=== PATIENT | female | born 1975 | race Caucasian/White ===

== ENCOUNTER 2019-10-30 17:51 | Emergency (ER) | payer MEDICAID ==
[~2019-10-30] VITALS: Ht 177.8 cm; Wt 90.0 kg
[2019-10-30] MEDS ORDERED: CEPH500C5 PO (20:17)
[2019-10-30] MEDS ORDERED: PRED20TA PO (20:17)
[2019-10-30] MEDS ORDERED: PERM60CR19 TP (20:17)
[2019-10-30] MEDS ORDERED: SULF1TAB49 PO (20:17)
[2019-10-30 20:37] VITALS: BP 140/78
== END 2019-10-30 20:34 | disposition home or self-care (01) ==
LOC: ER 17:52
DX: L02.414 Cutaneous abscess of left upper limb (principal); L02.413 Cutaneous abscess of right upper limb; L02.416 Cutaneous abscess of left lower limb; L02.415 Cutaneous abscess of right lower limb; R21 Rash and other nonspecific skin eruption; J44.9 Chronic obstructive pulmonary disease, unspecified; F15.90 Other stimulant use, unspecified, uncomplicated; Z59.0 Homelessness
CPT/HCPCS: 99283

== ENCOUNTER 2020-07-09 14:55 | Emergency (ER) | payer MEDICAID ==
[~2020-07-09] VITALS: Ht 177.8 cm; Wt 75.9 kg
[~2020-07-09 14:55] MED LIST: CEPH500C5 PO
[2020-07-09 15:21] VITALS: BP 149/92
[2020-07-09] MEDS ORDERED: CefTRIAXone 250MG inj IM ONE (16:30)
[2020-07-09] MEDS ORDERED: sulfamethoxazole/trimethoprim DS (800/160mg) tablet PO ONE (16:30)
[2020-07-09] MEDS ORDERED: CefTRIAXone 250MG IM Kit w/LIDOcaine IM ONE (16:40)
[2020-07-09] MEDS ORDERED: SULF1TAB49 PO (16:41)
[2020-07-09] MEDS ORDERED: CEPH500C5 PO (16:41)
== END 2020-07-09 16:56 | disposition home or self-care (01) ==
LOC: ER 14:55
DX: L03.011 Cellulitis of right finger (principal); J44.9 Chronic obstructive pulmonary disease, unspecified; F15.90 Other stimulant use, unspecified, uncomplicated; Z59.0 Homelessness; Z88.8 Allergy status to other drugs, medicaments and biological substances; Z79.2 Long term (current) use of antibiotics; Z79.899 Other long term (current) drug therapy
CPT/HCPCS: 96372; 99283; J0696

== ENCOUNTER 2020-07-17 15:25 | Inpatient (IN) | payer MEDICAID ==
[~2020-07-17] VITALS: Ht 177.8 cm; Wt 79.6 kg
[~2020-07-17 15:25] MED LIST changes: +CEPH-585 PO; -CEPH500C5 PO; +SULF1TAB49 PO
[2020-07-17 16:49] LABS: BASOPHILS # (AUTO) 0.1 X10'3 (0-0.2); EOSINOPHILS # (AUTO) 0.2 X10'3 (0-0.9); HEMOGLOBIN 13.6 g/dl (12.0-16.0); MEAN CORPUSCULAR HEMOGLOBIN 29.2 PG (27.0-31.0); MONOCYTES # (AUTO) 0.5 X10'3 (0-0.9); RED BLOOD COUNT 4.67 X10'6 (4.20-5.60)
[2020-07-17 16:51] LABS: BASOPHILS % (AUTO) 0.8 % (0-1); EOSINOPHILS % (AUTO) 1.3 % (0-6); HEMATOCRIT 40.6 % (35.0-45.0); LYMPHOCYTES % (AUTO) 17.3 % (21-51); MEAN CORPUSCULAR HGB CONC 33.5 g/dL (33.0-36.5); MEAN PLATELET VOLUME 7.6 FL (7.4-10.4); MONOCYTES % (AUTO) 4.1 % (2-12); NEUTROPHILS # (AUTO) 8.7 X10'3 (1.8-7.7); NEUTROPHILS % (AUTO) 76.5 % (42-75); PLATELET COUNT 620 X10'3 (140-440); RED CELL DISTRIBUTION WIDTH 13.1 % (11.5-14.5); WHITE BLOOD COUNT 11.3 X10'3 (4.5-11.0)
[2020-07-17 17:06] LABS: ALANINE AMINOTRANSFERASE 16 U/L (12-78); ALBUMIN 3.2 G/DL (3.4-5.0); ALBUMIN/GLOBULIN RATIO 0.7 (1.1-1.5); ALKALINE PHOSPHATASE 89 IU/L (46-116); ANION GAP 12 (8-16); ASPARTATE AMINO TRANSFERASE 18 U/L (10-37); BILIRUBIN,TOTAL 0.3 MG/DL (0.1-1.0); BLOOD UREA NITROGEN 16 MG/DL (7-18); BUN/CREATININE RATIO 18.6 (6.6-38.0); CALCIUM 9.2 MG/DL (8.5-10.1); CHLORIDE 100 MMOL/L (99-107); CREATININE 0.86 MG/DL (0.40-0.90); GLUCOSE 88 MG/DL (70-104); SODIUM 139 MMOL/L (135-145); TOTAL CARBON DIOXIDE 27.4 MMOL/L (24-32); TOTAL PROTEIN 7.6 G/DL (6.4-8.2); eGFR 72 ML/MIN
[2020-07-17 17:07] LABS: POTASSIUM 4.3 MMOL/L (3.5-5.1)
[2020-07-17] MEDS ORDERED: CefTRIAXone/D5W-Rocephin 1gm 50 ML IV ONE (17:10)
[2020-07-17] MEDS ORDERED: morphine 4 MG/ML inj SYRINge IV ONE (17:10)
[2020-07-17] MEDS ORDERED: ondansetron/PF 4mg/2ml inj IV ONE (17:10)
[2020-07-17] MEDS ORDERED: vancomycin/NS 1 GM ADD-VANTAGE 250 ML X 1 DOSE IV ONE (17:15)
[2020-07-17 17:27] LABS: C-REACTIVE PROTEIN 2.36 MG/DL (0.0-0.5)
[2020-07-17] MEDS ORDERED: magnesium Cl slow-release 64mg tablet PO PRN (19:55)
[2020-07-17] MEDS ORDERED: morphine 2 MG/ML inj. syringe IV PRN ×2 (19:55)
[2020-07-17] MEDS ORDERED: acetaminophen 325mg tablet PO PRN ×2 (19:55)
[2020-07-17] MEDS ORDERED: HYDROcodone/acetaminophen 5mg/325mg tablet PO PRN (19:55)
[2020-07-17] MEDS ORDERED: magnesium 2GM in 50ml NS 50 ML IV PRN (19:55)
[2020-07-17] MEDS ORDERED: potassium Cl 40MEQ/1/2NS 520ml 520 ML IV PRN ×2 (19:55)
[2020-07-17] MEDS ORDERED: potassium Cl 20 mEq SR tablet PO PRN ×2 (19:55)
[2020-07-17] MEDS ORDERED: ondansetron/PF 4mg/2ml inj IV PRN (19:55)
[2020-07-17] MEDS ORDERED: magnesium 4gm in 100ml NS 100 ML IV PRN (19:55)
[2020-07-17 20:33] LABS: HEMOGLOBIN A1C 5.6 % (4.5-6.2)
[2020-07-17] MEDS ORDERED: temazepam 15mg capsule PO PRN (21:00)
[2020-07-17 22:00] VITALS: BP 147/96
--- NOTE | 2020-07-17 22:20 | NUR ---
PT CAME TO ROOM 4011B FROM ER. FOUND SOME PIPES AND SYRINGES IN PT'S BAG. CALLED SECURITY TO SEARCH ALL HER BELONGINGS. FOUND MORE PIPES AND MARIJUANA WHICH SECURITY TOOK TO DISPOSE. AND FOUND SOME MEDICATIONS, 4 LIGHTERS, INSTRUCTOR APPAREL MANUFACTURE FLUID, MACE, TABACCO LEAVES. SENT MEDS TO PHARMACY AND KEPT OTHERS IN MED ROOM. PT IS VERY UPSET.
[2020-07-17] MEDS: heparin, porcine 5000 units/ml vial SQ SCH (22:55)
[2020-07-17] MEDS: docusate sod 100mg capsule PO SCH (22:58)
[2020-07-17] MEDS: HYDROcodone/acetaminophen 10/325mg tab PO PRN (23:01)
[2020-07-17] MEDS: normal saline 1000ml 1,000 ML IV SCH (23:02)
[2020-07-17] MEDS: K and/or MAG REPLACEMENT MC SCH (23:39)
[2020-07-18] MEDS: piperacillin/tazo 3.375gm/50ml 50 ML IV SCH ×4 (00:02→23:44)
[2020-07-18] MEDS: HYDROcodone/acetaminophen 10/325mg tab PO PRN ×2 (04:50→18:32)
[2020-07-18] MEDS: normal saline 1000ml 1,000 ML IV SCH ×3 (05:55→23:44)
[2020-07-18 06:00] VITALS: BP 132/82
--- NOTE | 2020-07-18 06:26 | NUR ---
Problems reprioritized. Patient report given, questions answered & plan of care reviewed with da Yang and da Guzman.
--- NOTE | 2020-07-18 06:29 | NUR ---
Patient in room ORTHO 4011. I have received report from Abel FRIAS and had the opportunity to ask questions and assume patient care.
--- NOTE | 2020-07-18 06:40 | NUR ---
Patient in room ORTHO 4011B. I have received report from RODRIGUEZ Coates and had the opportunity to ask questions and assume patient care. RODRIGUEZ Guzman will care for pt, I am precepting Megan and will monitor all care.
[2020-07-18 06:58] LABS: BASOPHILS # (AUTO) 0.1 X10'3 (0-0.2); BASOPHILS % (AUTO) 0.8 % (0-1); EOSINOPHILS # (AUTO) 0.2 X10'3 (0-0.9); EOSINOPHILS % (AUTO) 2.6 % (0-6); HEMATOCRIT 38.6 % (35.0-45.0); LYMPHOCYTES # (AUTO) 2.2 X10'3 (1.1-4.8); LYMPHOCYTES % (AUTO) 23.4 % (21-51); MEAN CORPUSCULAR HEMOGLOBIN 29.9 PG (27.0-31.0); MEAN CORPUSCULAR HGB CONC 33.7 g/dL (33.0-36.5); MEAN CORPUSCULAR VOLUME 88.7 FL (78-98); MEAN PLATELET VOLUME 7.5 FL (7.4-10.4); MONOCYTES # (AUTO) 0.6 X10'3 (0-0.9); MONOCYTES % (AUTO) 6.3 % (2-12); NEUTROPHILS # (AUTO) 6.2 X10'3 (1.8-7.7); NEUTROPHILS % (AUTO) 66.9 % (42-75); PLATELET COUNT 593 X10'3 (140-440); RED BLOOD COUNT 4.35 X10'6 (4.20-5.60); RED CELL DISTRIBUTION WIDTH 13.1 % (11.5-14.5); WHITE BLOOD COUNT 9.2 X10'3 (4.5-11.0)
[2020-07-18 07:15] LABS: ALANINE AMINOTRANSFERASE 14 U/L (12-78); ALBUMIN 2.7 G/DL (3.4-5.0); ALBUMIN/GLOBULIN RATIO 0.7 (1.1-1.5); ALKALINE PHOSPHATASE 76 IU/L (46-116); ANION GAP 6 (8-16); ASPARTATE AMINO TRANSFERASE 11 U/L (10-37); BILIRUBIN,TOTAL 0.1 MG/DL (0.1-1.0); BLOOD UREA NITROGEN 16 MG/DL (7-18); BUN/CREATININE RATIO 17.2 (6.6-38.0); CHLORIDE 103 MMOL/L (99-107); CREATININE 0.93 MG/DL (0.40-0.90); GLUCOSE 98 MG/DL (70-104); MAGNESIUM 1.8 MG/DL (1.5-2.4); POTASSIUM 4.4 MMOL/L (3.5-5.1); SODIUM 138 MMOL/L (135-145); TOTAL PROTEIN 6.7 G/DL (6.4-8.2); eGFR 65 ML/MIN
[2020-07-18] MEDS: docusate sod 100mg capsule PO SCH ×2 (08:00→19:57)
[2020-07-18] MEDS: K and/or MAG REPLACEMENT MC SCH ×2 (08:00→20:00)
[2020-07-18] MEDS: pantoprazole 40mg Tablet.DR PO SCH (08:00)
[2020-07-18] MEDS: nicotine 14mg patch - 24hr TD SCH (08:00)
[2020-07-18] MEDS: heparin, porcine 5000 units/ml vial SQ SCH ×2 (08:01→19:57)
[2020-07-18] MEDS: vancomycin/NS 1 GM ADD-VANTAGE 250 ML IV SCH ×2 (08:02→19:57)
[2020-07-18 11:00] VITALS: BP 141/75
[2020-07-18] MEDS ORDERED: tetanus & diphtheria toxoid (Td) vaccine 0.5ml IMVAC ONE (12:30)
--- NOTE | 2020-07-18 16:17 | NUR ---
Pt has been sleeping majority of AM shift. Pt is easy to arouse. Applied new dressing to right index finger with MD at bedside. Pt ate two breakfast trays 100% and lunch tray 100%. Will continue to monitor patient.
--- NOTE | 2020-07-18 16:57 | NUR ---
Pt is visibly upset. Pt states "my dog is missing and someone is going to kidnap him before the end of the night". At this time pt states she does not intend on leaving against medical advice. Will continue to monitor patient.
[2020-07-18 18:00] VITALS: BP 133/83
--- NOTE | 2020-07-18 18:00 | NUR ---
per Dr. Chang, if pt leaves AMA he would like RN to call in RX for Bactrim DS, 1 PO BID x 10days. I will pass along info to night RN
--- NOTE | 2020-07-18 18:13 | NUR ---
Problems reprioritized. Patient report given, questions answered & plan of care reviewed with Chloe FRIAS.
--- NOTE | 2020-07-18 18:14 | NUR ---
[place] documentation: I have reviewed and agree with all interventions, assessments performed and documented by RODRIGUEZ Guzman.
--- NOTE | 2020-07-18 18:20 | NUR ---
Received report from Celia FRIAS and Megan FRIAS, assumed care of patient. At this time patient is in agreement with POC and staying the night in the hospital.
[2020-07-18] MEDS: lactobacillus rhamnosus 10,000 MMU CELLS/CAPSULE PO SCH (19:57)
[2020-07-18 22:00] VITALS: BP 133/77
[2020-07-19] MEDS: HYDROcodone/acetaminophen 10/325mg tab PO PRN (03:01)
[2020-07-19 06:00] VITALS: BP 132/76
--- NOTE | 2020-07-19 06:11 | NUR ---
Report given to Celia FRIAS and Megan FRIAS.
--- NOTE | 2020-07-19 06:16 | NUR ---
Patient in room ORTHO 4011. I have received report from Chloe FRIAS and had the opportunity to ask questions and assume patient care.
[2020-07-19] MEDS ORDERED: VANCOMYCIN LEVEL IV ONE (07:30)
[2020-07-19] MEDS: vancomycin/NS 1 GM ADD-VANTAGE 250 ML IV SCH (07:53)
[2020-07-19] MEDS: nicotine 14mg patch - 24hr TD SCH (07:54)
[2020-07-19] MEDS: pantoprazole 40mg Tablet.DR PO SCH (07:54)
[2020-07-19] MEDS: lactobacillus rhamnosus 10,000 MMU CELLS/CAPSULE PO SCH (07:54)
[2020-07-19] MEDS: docusate sod 100mg capsule PO SCH (07:54)
[2020-07-19 07:56] LABS: BASOPHILS # (AUTO) 0.1 X10'3 (0-0.2); EOSINOPHILS # (AUTO) 0.2 X10'3 (0-0.9)
[2020-07-19] MEDS: heparin, porcine 5000 units/ml vial SQ SCH (07:58)
[2020-07-19 08:00] LABS: BASOPHILS % (AUTO) 1.2 % (0-1); EOSINOPHILS % (AUTO) 2.9 % (0-6); HEMATOCRIT 39.2 % (35.0-45.0); HEMOGLOBIN 13.1 g/dl (12.0-16.0); LYMPHOCYTES # (AUTO) 1.9 X10'3 (1.1-4.8); LYMPHOCYTES % (AUTO) 25.1 % (21-51); MEAN CORPUSCULAR HEMOGLOBIN 29.1 PG (27.0-31.0); MEAN CORPUSCULAR HGB CONC 33.4 g/dL (33.0-36.5); MEAN CORPUSCULAR VOLUME 87.1 FL (78-98); MEAN PLATELET VOLUME 7.4 FL (7.4-10.4); MONOCYTES # (AUTO) 0.5 X10'3 (0-0.9); MONOCYTES % (AUTO) 6.1 % (2-12); NEUTROPHILS # (AUTO) 4.9 X10'3 (1.8-7.7); NEUTROPHILS % (AUTO) 64.7 % (42-75); PLATELET COUNT 632 X10'3 (140-440); RED CELL DISTRIBUTION WIDTH 13.3 % (11.5-14.5); WHITE BLOOD COUNT 7.6 X10'3 (4.5-11.0)
[2020-07-19] MEDS: K and/or MAG REPLACEMENT MC SCH (08:00)
[2020-07-19 08:12] LABS: ALANINE AMINOTRANSFERASE 15 U/L (12-78); ALBUMIN 2.8 G/DL (3.4-5.0); ALBUMIN/GLOBULIN RATIO 0.7 (1.1-1.5); ALKALINE PHOSPHATASE 74 IU/L (46-116); ANION GAP 5 (8-16); ASPARTATE AMINO TRANSFERASE 9 U/L (10-37); BILIRUBIN,TOTAL 0.3 MG/DL (0.1-1.0); BLOOD UREA NITROGEN 18 MG/DL (7-18); BUN/CREATININE RATIO 21.4 (6.6-38.0); CALCIUM 9.3 MG/DL (8.5-10.1); CHLORIDE 101 MMOL/L (99-107); CREATININE 0.84 MG/DL (0.40-0.90); GLUCOSE 98 MG/DL (70-104); MAGNESIUM 1.8 MG/DL (1.5-2.4); POTASSIUM 4.3 MMOL/L (3.5-5.1); SODIUM 135 MMOL/L (135-145); TOTAL CARBON DIOXIDE 29.2 MMOL/L (24-32); VANCOMYCIN,TROUGH 8.6 UG/ML (6.0-14.0); eGFR 74 ML/MIN
[2020-07-19 10:00] VITALS: BP 170/80
[2020-07-19] MEDS: piperacillin/tazo 3.375gm/50ml 50 ML IV SCH ×2 (10:06→16:00)
[2020-07-19] MEDS: normal saline 1000ml 1,000 ML IV SCH (11:55)
--- NOTE | 2020-07-19 13:00 | NUR ---
ordered DC planning and called rn field case manager, message left to arrange wound care.
--- NOTE | 2020-07-19 14:55 | NUR ---
scheduled an appointment with outpatient wound care on Saturday
--- NOTE | 2020-07-19 15:08 | NUR ---
Page Sent PAGER ID: [phone] MESSAGE: AURY [id number]-RE: [id number] JANE GRIGGS...I SCHEDULED PT WITH OUTPATIENT WOUND CARE ON SATURDAY 07/22 @1045. PT IS STAYING FOR [facility], WILL LEAVE AFTER. WILL YOU PLEASE TERRIEE CANDIDA. THANK YOU
[2020-07-19] MEDS ORDERED: vancomycin/NS 1 GM ADD-VANTAGE 250 ML IV SCH (16:00)
--- NOTE | 2020-07-19 18:19 | NUR ---
ORIENTEE documentation: I have reviewed and agree with all interventions, assessments performed and documented by RODRIGUEZ REDDY.
[2020-07-20] MEDS ORDERED: VANCOMYCIN LEVEL IV ONE (07:30)
--- NOTE | 2020-07-20 15:34 | NUR ---
CASE MANAGEMENT DISCHARGE FOLLOW UP: T/c to pt, no answer, left message requesting callback.
== END 2020-07-19 18:00 | disposition home or self-care (01) | DRG 361 ==
LOC: ER 15:26 → ED HOLD 19:55 → ORTHO 4S 21:40
PROVIDERS: ADMIT Internal Medicine; ATTEND Family Medicine
PROC: 0HBFXZZ Excision of Right Hand Skin, External Approach (ICD-10-PCS; principal; 2020-07-17)
PROC: 0H9FXZZ Drainage of Right Hand Skin, External Approach (ICD-10-PCS; 2020-07-17)
DX: L03.011 Cellulitis of right finger (principal); N17.9 Acute kidney failure, unspecified; F12.90 Cannabis use, unspecified, uncomplicated; F15.90 Other stimulant use, unspecified, uncomplicated; F17.200 Nicotine dependence, unspecified, uncomplicated; J44.9 Chronic obstructive pulmonary disease, unspecified; L02.511 Cutaneous abscess of right hand; M65.9 Synovitis and tenosynovitis, unspecified; Z59.0 Homelessness; Z88.8 Allergy status to other drugs, medicaments and biological substances
CPT/HCPCS: 36415; 73140; 80053; 80202; 83036; 83735; 85025; 85651; 86140; 87040; 87081; 90715; 96374; 99285; G0378; J0696; J1644; J2270; J2405; J2543; J3370; J7030

== ENCOUNTER 2025-04-28 20:54 | Emergency (ER) | payer MEDICAID ==
[~2025-04-28] VITALS: Ht 177.8 cm; Wt 79.5 kg
[2025-04-28 21:09] VITALS: BP 147/109; PULSE 93; RESP 20; TEMP 98; O2SAT 99
== END 2025-04-28 22:32 | disposition left against medical advice (07) ==
LOC: ER 20:54
DX: Z02.89 Encounter for other administrative examinations (principal); Z53.21 Procedure and treatment not carried out due to patient leaving prior to being seen by health care provider
CPT/HCPCS: 99281